=== PATIENT | male | born 1985 ===

== ENCOUNTER 2016-07-27 09:47 | Emergency (ER) | payer OTHER, SELFPAY ==
[2016-07-27 09:47] VITALS: BMI 31.6
[2016-07-27 10:01] VITALS: TEMP 98.4; O2SAT 99
--- NOTE | 2016-07-27 11:00 | ED PDOC ---
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 No chest pain, no neck pain. No abdominal pain. No PMD NIHSS Stroke Scale - Date/Time Evaluation Performed Date Performed: 07/27/16 Time Performed: 09:58 - How Severe is the Stroke Level of Consciousness: 0=Alert LOC to Questions: 0=Both comments correct LOC to commands: 0=Obeys both correctly Best Gaze: 0=Normal Visual: 0=No visual loss Facial: 0=Normal Motor Arm - Left: 0=No drift Motor Arm - Right: 0=No drift Motor Leg - Left: 0=No drift Motor Leg - Right: 0=No drift Limb Ataxia: 0=Absent Sensory: 0=Normal Best Language: 0=No aphasia Dysarthia: 0=Normal articulation Extinction & Inattention (Neglect): 0=Normal, no object Score: 0 Severity Of Stroke: 0 = No Stroke rTPA Inclusion/Exclusion - Refusal of Treatment Patient Refused Treatment: No - Inclusion Criteria for Altepase Patient is 18 years or Older: Yes The Clinical Diagnosis of Ischemic Stroke That is Causing a Potentially Disabling Neurological Deficit: No Time of Onset is Well Established to be Less Than 270 Minute Before Treatment Would Begin: No Risk/Benefit Discussed With Patient/Family Member Present: No - Exclusion Criteria for Altepase Uncontrolled Hypertension at Time of Treatment (Systolic BP above 185 or Diastolic BP above 110 mmHg): No Active Internal Bleeding: No Known Bleeding Diathesis Including but Not Limited to: Platelets Below 100,000/ mm,PTT Above 40 sec After Heparin Use, Current Use of Oral Anitcoagulant With INR Greater Than 1.7 or PT Greater Than 15 secs: No Evidence of an Intracranial Hemorrhage: No Evidence of Major Acute Infarct With Signs Greater Than 1/3 MCA Territory: No - Warning to TPA With Conditions Following Conditions Weighed Against Anticipated Benefit: Yes Condition: Care Team Unable to Determine Eligibilty (outside of window) Past Medical History Reviewed: Historical Data, Nursing Documentation, Vital Signs Vital Signs: Last Vital Signs Temp 98.4 F 04/19/17 09:58 Pulse 93 H 07/27/16 15:04 Resp 18 07/27/16 15:04 BP 146/78 07/27/16 15:04 Pulse Ox 99 07/27/16 15:04 - Medical History PMH: Bronchitis, Hypercholesterolemia - Surgical History Surgical History: Appendectomy Other surgeries: catheterization - Family History Family History: States: Unknown Family Hx - Social History Current smoker - smoking cessation education provided: No Alcohol: Occasional Drugs: Denies - Immunization History Hx Tetanus Toxoid Vaccination: No Hx Influenza Vaccination: No Hx Pneumococcal Vaccination: No - Home Medications Home Medications: Ambulatory Orders Medication Instructions Recorded Aspirin [[place] Aspirin] 81 mg PO 05/24/16 Naproxen [Naprosyn] 1 tab PO BID PRN #20 tab 05/24/16 Ibuprofen [Motrin] 600 mg PO Q8 #20 tab 06/15/16 - Allergies Allergies/Adverse Reactions: Allergies Allergy/AdvReac Type Severity Reaction Status Date / Time No Known Allergies Allergy Verified 05/24/16 13:40 Review of Systems ROS Statement: Except As Marked, All Systems Reviewed And Found Negative Cardiovascular: Negative for: Chest Pain Musculoskeletal: Negative for: Shoulder Pain, Arm Pain Neurological: Positive for: Numbness Physical Exam - Reviewed Nursing Documentation Reviewed: Yes Vital Signs Reviewed: Yes - Physical Exam Appears: Positive for: Well, Non-toxic, No Acute Distress Head Exam: Positive for: ATRAUMATIC, NORMAL INSPECTION, NORMOCEPHALIC Skin: Positive for: Warm, Dry Eye Exam: Positive for: EOMI, PERRL Cardiovascular/Chest: Positive for: Regular Rate, Rhythm Respiratory: Positive for: Normal Breath Sounds. Negative for: Rales, Rhonchi, Wheezing Gastrointestinal/Abdominal: Positive for: Soft. Negative for: Tenderness Extremity: Positive for: Normal ROM. Negative for: Tenderness, Deformity, Swelling Neurologic/Psych: Positive for: Alert, Oriented (x3), Other (See NIH Stroke Scale). Negative for: Motor/Sensory Deficits - Laboratory Results Result Diagrams: 07/27/16 11:19 07/27/16 11:19 - ECG ECG: Positive for: Interpreted By Me, Viewed By Me ECG Rhythm: Positive for: Sinus Rhythm Interpretation Of ECG: early repolarization O2 Sat by Pulse Oximetry: 99 (RA) Pulse Ox Interpretation: Normal Medical Decision Making Medical Decision Makin Impression: numbess pt without cardiac risk factors and ekg and labs normal rule out intracranial process, rule out CVA. Plan; -Ct head w/o -CXR -labs -reassess 1243 CXR Report reviewed: no focal consolidation, significant pleural effusion, definite pneumothorax identified. 1450 CT Head w/o IMPRESSION: No acute intracranial pathology identified. 1450 On reassessment patient states numbness has resolved. Will refer him to clinic and outpatient neurology for outpatient workup. stable for discharge. Disposition - Clinical Impression Clinical Impression: Arm paresthesia, left - Patient ED Disposition Is Patient to be Admitted: No Counseled Patient/Family Regarding: Studies Performed, Diagnosis, Need For Followup - Disposition Referrals: [facility] [Outside] [facility] [Outside] Radha Rodriguez MD [Staff Provider] - Disposition: Routine/Home Disposition Time: 12:00 Condition: GOOD Additional Instructions: follow up with your primary doctor/clinic as well as neurology in 1-2 days. return to the ED with any worsening or concerning symptoms. Instructions: Paresthesia (ED) Additional Comments - Additional Comments Additional Comments: Scribe Attestation: Documented by Martínez Pierce acting as a scribe for Garret Crouch MD. Provider Scribe Attestation: All medical record entries made by the Scribe were at my direction and personally dictated by me. I have reviewed the chart and agree that the record accurately reflects my personal performance of the history, physical exam, medical decision making, and the department course for this patient. I have also personally directed, reviewed, and agree with the discharge instructions and disposition.
[2016-07-27 11:29] LABS: BASO % 0.7 % (0.0-2.0); EOS # 0.1 K/uL (0.0-0.7); EOS % 0.9 % (0.0-4.0); HEMATOCRIT 44.1 % (35.0-51.0); LYMPH % 32.3 % (20.0-40.0); MEAN CELL VOLUME 84.5 fl (80.0-94.0); MEAN CORPUSCULAR HEMOGLOBIN 28.6 pg (27.0-31.0); MEAN CORPUSCULAR HGB CONC 33.8 g/dL (33.0-37.0); MEAN PLATELET VOLUME 6.9 fl (7.2-11.7); MONO # 0.5 K/uL (0.0-0.8); MONO % 7.4 % (0.0-10.0); NEUT # 3.6 K/uL (1.8-7.0); NEUT % 58.7 % (50.0-75.0); NRBC % 0.1 % (0.0-0.0); RED CELL DISTRIBUTION WIDTH 13.4 % (11.5-14.5); WHITE BLOOD COUNT 6.1 K/uL (4.8-10.8)
--- NOTE | 2016-07-27 11:29 | RAD ---
HISTORY: left arm pain COMPARISON: Chest x-ray performed 08/25/14 TECHNIQUE: Chest PA and lateral FINDINGS: LUNGS: No focal consolidation. Please note that chest x-ray has limited sensitivity for the detection of pulmonary masses. PLEURA: No significant pleural effusion identified. No definite pneumothorax . CARDIOVASCULAR: The cardiomediastinal silhouette appears within normal limits of size. OSSEOUS STRUCTURES: No acute osseous abnormality identified. VISUALIZED UPPER ABDOMEN: Unremarkable. OTHER FINDINGS: None. IMPRESSION: No focal consolidation, significant pleural effusion, or definite pneumothorax identified.
[2016-07-27 11:40] LABS: CHLORIDE 104 mmol/L (98-107); SODIUM 139 mmol/l (132-148)
[2016-07-27 11:41] LABS: POTASSIUM 4.3 MMOL/L (3.6-5.0)
[2016-07-27 11:43] LABS: ALB/GLOB RATIO 1.3 (1.0-2.1); ALKALINE PHOSPHATASE 49 U/L (38-126); AST/SGOT 34 U/L (17-59); BILIRUBIN,TOTAL 0.7 mg/dl (0.2-1.3); BLOOD UREA NITROGEN 11 mg/dl (9-20); CARBON DIOXIDE 26 mmol/L (22-30); GFR AFRICAN-AMERICAN > 60; TOTAL PROTEIN 7.6 G/DL (6.3-8.2)
[2016-07-27 11:44] LABS: ALT/SGPT 32 U/L (21-72); CALCIUM 9.1 mg/dL (8.4-10.2); GLUCOSE,RANDOM 91 mg/dL (75-110)
--- NOTE | 2016-07-27 13:15 | CT ---
PROCEDURE: CT HEAD WITHOUT CONTRAST. HISTORY: headache COMPARISON: Images from noncontrast head CT performed 07/31/11 TECHNIQUE: Axial computed tomography images were obtained through the head/brain without intravenous contrast. Radiation dose: Total exam DLP = 856.57 mGy-cm. This CT exam was performed using one or more of the following dose reduction techniques: Automated exposure control, adjustment of the mA and/or kV according to patient size, and/or use of iterative reconstruction technique. FINDINGS: HEMORRHAGE: No intracranial hemorrhage. BRAIN: No mass effect or edema. The jacobo-white matter differentiation appears intact. Please note that MRI with diffusion imaging is more sensitive in the detection of acute ischemic event. VENTRICLES: No hydrocephalus. CALVARIUM: Unremarkable. PARANASAL SINUSES: Unremarkable as visualized. No significant inflammatory changes. MASTOID AIR CELLS: Unremarkable as visualized. No inflammatory changes. OTHER FINDINGS: None. IMPRESSION: No acute intracranial pathology identified.
[2016-07-27 15:05] VITALS: BP 146/78; PULSE 93; RESP 18
== END 2016-07-27 15:05 | disposition home or self-care (01) ==
LOC: H.ER 09:47
DX: R20.9 Unspecified disturbances of skin sensation (principal); E78.00 Pure hypercholesterolemia, unspecified

== ENCOUNTER 2016-10-08 22:07 | Emergency (ER) | payer SELFPAY ==
[2016-10-08 22:07] VITALS: BMI 31.6
[2016-10-08 22:14] VITALS: BP 127/87; PULSE 100; RESP 16; TEMP 98.1; O2SAT 98
--- NOTE | 2016-10-08 22:38 | ED PDOC ---
Lower Extremity Pain/Injury Time Seen by Provider: 10/08/16 22:15 Chief Complaint (Nursing): Lower Extremity Problem/Injury Chief Complaint (Provider): Ankle pain History Per: Patient Additional Complaint(s): Right ankle pain and swelling after falling from 2 steps of stairs. Pt able to ambulate with limp. no history of previous breaks to affected extremity Past Medical History Reviewed: Nursing Documentation, Vital Signs Vital Signs: Last Vital Signs Temp 98.1 F 10/08/16 22:11 Pulse 100 H 10/08/16 22:11 Resp 16 10/08/16 22:11 BP 127/87 10/08/16 22:11 Pulse Ox 98 10/08/16 22:11 - Medical History PMH: Bronchitis, Hypercholesterolemia - Surgical History Surgical History: Appendectomy - Family History Family History: States: Unknown Family Hx - Social History Current smoker - smoking cessation education provided: No Alcohol: Social Drugs: Denies - Immunization History Hx Tetanus Toxoid Vaccination: No Hx Influenza Vaccination: No Hx Pneumococcal Vaccination: No - Home Medications Home Medications: Ambulatory Orders Medication Instructions Recorded Aspirin [[place] Aspirin] 81 mg PO 05/24/16 Naproxen [Naprosyn] 1 tab PO BID PRN #20 tab 05/24/16 Ibuprofen [Motrin] 600 mg PO Q8 #20 tab 06/15/16 Ibuprofen [Motrin] 600 mg PO Q6 #20 tab 10/08/16 - Allergies Allergies/Adverse Reactions: Allergies Allergy/AdvReac Type Severity Reaction Status Date / Time No Known Allergies Allergy Verified 05/24/16 13:40 Review of Systems ROS Statement: Except As Marked, All Systems Reviewed And Found Negative Musculoskeletal: Positive for: Other (ankle pain) Physical Exam - Reviewed Nursing Documentation Reviewed: Yes Vital Signs Reviewed: Yes - Physical Exam Appears: Positive for: Well, Non-toxic, No Acute Distress Head Exam: Positive for: ATRAUMATIC, NORMAL INSPECTION, NORMOCEPHALIC Skin: Positive for: Normal Color, Warm, DRY Eye Exam: Positive for: EOMI, Normal appearance, PERRL ENT: Positive for: Normal ENT Inspection Neck: Positive for: Normal, Painless ROM Cardiovascular/Chest: Positive for: Regular Rate, Rhythm Respiratory: Positive for: CNT, Normal Breath Sounds Gastrointestinal/Abdominal: Positive for: Normal Exam, Bowel Sounds, Soft Back: Positive for: Normal Inspection Extremity: Positive for: Normal ROM, Tenderness (medial malleolus). Negative for: Deformity, Swelling Neurologic/Psych: Positive for: Alert, Oriented - ECG O2 Sat by Pulse Oximetry: 98 Medical Decision Making Medical Decision Making: XR: NAD, as read by DOMINICK Motrin administered for pain pt educated on results and demonstrated full understanding RICE therapy advised Disposition - Clinical Impression Clinical Impression: Ankle pain, Ankle sprain and strain - Patient ED Disposition Is Patient to be Admitted: No - Disposition Referrals: [facility] [Outside] Disposition: Routine/Home Disposition Time: 23:19 Condition: STABLE Prescriptions: Ibuprofen [Motrin] 600 mg PO Q6 #20 tab Instructions: Ankle Sprain (ED), RICE Therapy (ED) Forms: [facility] ED School/Work Excuse Print Language: INDONESIAN - POA Present On Arrival: None
--- NOTE | 2016-10-09 09:21 | RAD ---
PROCEDURE: Right Ankle Radiographs. HISTORY: pain s/p twist injury COMPARISON: Comparison made with concurrent radiographs of the right foot. FINDINGS: BONES: No evidence of acute displaced fracture nor dislocation. The osseous structures appear intact. Talar dome intact. . . There are tiny bony density seen within the soft tissues subjacent to the inferior tip of the lateral malleolus. Findings may represent some old posttraumatic mineralization Note is made of a small bony protuberance arising from the medial margin of the at medial malleolus likely representing an incidental exostosis. JOINTS: Ankle mortise maintained. No significant osteoarthritis SOFT TISSUES: There appears to be minor lateral soft tissue swelling OTHER FINDINGS: None. IMPRESSION: No acute displaced fracture nor dislocation. Tiny bony densities within the soft tissues subjacent to the inferior tip of the lateral malleolus possibly represents edema some all posttraumatic mineralization. Minor lateral soft tissue swelling
--- NOTE | 2016-10-09 09:23 | RAD ---
PROCEDURE: Right Foot Radiographs. HISTORY: pain s/p twist injury COMPARISON: None. FINDINGS: BONES: No fracture. Tiny bony protuberances seen arising from the medial aspect of the medial malleolus which could represent an incidental exostosis JOINTS: Joint space preserved. No significant osteoarthritis. SOFT TISSUES: Normal. OTHER FINDINGS: None. IMPRESSION: No evidence acute displaced fracture nor dislocation
== END 2016-10-08 23:18 | disposition home or self-care (01) ==
LOC: H.ER 22:07
DX: M25.571 Pain in right ankle and joints of right foot (principal); S93.401A Sprain of unspecified ligament of right ankle, initial encounter; S96.911A Strain of unspecified muscle and tendon at ankle and foot level, right foot, initial encounter; W10.9XXA Fall (on) (from) unspecified stairs and steps, initial encounter

== ENCOUNTER 2016-10-11 05:42 | Emergency (ER) | payer SELFPAY ==
[2016-10-11 05:42] VITALS: BMI 31.6
[2016-10-11 06:01] VITALS: BP 154/71; PULSE 77; TEMP 98; O2SAT 98
[2016-10-11 06:14] VITALS: RESP 16
[2016-10-11] MEDS ORDERED: Albuterol-Ipratrop 3 mg / 0.5 (3 ml) UD INH STA ×2 (06:14)
--- NOTE | 2016-10-11 06:43 | ED PDOC ---
HPI: SOB/CHF/COPD Time Seen by Provider: 10/11/16 06:02 Chief Complaint (Nursing): Shortness Of Breath Chief Complaint (Provider): Shortness of Breath History Per: Patient History/Exam Limitations: no limitations Onset/Duration Of Symptoms: Days (x3) Current Symptoms Are (Timing): Still Present Associated Symptoms: denies: Chest Pain, Bloody Cough, Productive Cough Additional Complaint(s): 31 year old male presents to ED with complaints of SOB x3 days and has a past medical history of bronchitis. (-) chest pain, sore throat, cough, and all other symptoms. Denies recent travel, recent surgeries, or recent immobilizations. PCP: TBD - Risk Factors PE Risk Factors: Neg: Extremity Immobilization/Fx, Recent Major Surgery Past Medical History Reviewed: Historical Data, Nursing Documentation, Vital Signs Vital Signs: Last Vital Signs Temp 98.0 F 10/11/16 05:53 Pulse 77 10/11/16 05:53 Resp 16 10/11/16 06:13 BP 154/71 H 10/11/16 05:53 Pulse Ox 98 10/11/16 06:46 - Medical History PMH: Bronchitis, Hypercholesterolemia Denies: No Chronic Diseases - Surgical History Surgical History: Appendectomy - Family History Family History: States: Unknown Family Hx - Social History Current smoker - smoking cessation education provided: No Alcohol: Occasional Drugs: Denies - Immunization History Hx Tetanus Toxoid Vaccination: No Hx Influenza Vaccination: No Hx Pneumococcal Vaccination: No - Home Medications Home Medications: Ambulatory Orders Medication Instructions Recorded Aspirin [[place] Aspirin] 81 mg PO 05/24/16 Naproxen [Naprosyn] 1 tab PO BID PRN #20 tab 05/24/16 Ibuprofen [Motrin] 600 mg PO Q8 #20 tab 06/15/16 Ibuprofen [Motrin] 600 mg PO Q6 #20 tab 10/08/16 Albuterol HFA [Ventolin HFA 90 2 puff IH [id number] #1 puff 10/11/16 mcg/actuation (8 g)] Prednisone [Deltasone] 40 mg PO DAILY 3 Days 10/11/16 - Allergies Allergies/Adverse Reactions: Allergies Allergy/AdvReac Type Severity Reaction Status Date / Time No Known Allergies Allergy Verified 05/24/16 13:40 Curb-65 Severity Score - CURB-65 Severity Score Confusion: No Respiratory Rate greater than/equal to 30: No Systolic BP <90 or Diastolic BP less than/equal 60mmHg: No Age >64: No Curb-65 Score: 0 Percentage 30-day mortality: 0.6% Wells Criteria for PE - Wells Criteria for Pulmonary Embolism Clinical Signs and Symptoms of DVT: No P.E is #1 Diagnosis, or Equally Likely: No Heart Rate >100: No Immobilization at least 3 days;Surgery previous 4 weeks: No Previous, objectively diagnosed PE or DVT: No Hemoptysis: No Malignancy w/treatment within 6 months, or palliative: No Total Score: 0 Review of Systems ROS Statement: Except As Marked, All Systems Reviewed And Found Negative ENT: Negative for: Throat Pain Cardiovascular: Negative for: Chest Pain Respiratory: Positive for: Shortness of Breath. Negative for: Cough Physical Exam - Reviewed Nursing Documentation Reviewed: Yes Vital Signs Reviewed: Yes - Physical Exam Appears: Positive for: Non-toxic, No Acute Distress Head Exam: Positive for: ATRAUMATIC Skin: Positive for: Normal Color, Warm, Dry Eye Exam: Positive for: Normal appearance ENT: Positive for: Normal ENT Inspection Neck: Positive for: Normal Cardiovascular/Chest: Positive for: Regular Rate, Rhythm. Negative for: Murmur Respiratory: Positive for: Normal Breath Sounds. Negative for: Respiratory Distress Gastrointestinal/Abdominal: Positive for: Soft. Negative for: Tenderness Extremity: Positive for: Normal ROM. Negative for: Deformity Neurologic/Psych: Positive for: Alert, Oriented. Negative for: Motor/Sensory Deficits - ECG O2 Sat by Pulse Oximetry: 98 (RA) Pulse Ox Interpretation: Normal Medical Decision Making Medical Decision Makin Initial impression: bronchospasm Initial plan: * CXR * Duonebs 3mL INH x2 * Prednisone 40mg PO * Peak flow pre/post Tx 650 Breathing is much improved. Return precautions given. Told to f/u w/ PMD. Scribe Attestation: Documented by Cat Davies acting as a scribe for Weston Dillard MD. Scribe Attestation: All medical record entries made by the Scribe were at my direction and personally dictated by me. I have reviewed the chart and agree that the record accurately reflects my personal performance of the history, physical exam, medical decision making, and the department course for this patient. I have also personally directed, reviewed, and agree with the discharge instructions and disposition. Disposition - Clinical Impression Clinical Impression: Bronchospasm - Disposition Referrals: [facility] [Outside] Disposition: Transfer of Care Disposition Time: 07:00 Condition: STABLE Prescriptions: Albuterol HFA [Ventolin HFA 90 mcg/actuation (8 g)] 2 puff IH [id number] #1 puff Prednisone [Deltasone] 40 mg PO DAILY 3 Days Instructions: Bronchospasm (ED) Patient Signed Over To: Garret Crouch Handoff Comments: Pending re-evaluation
--- NOTE | 2016-10-11 09:15 | RAD ---
HISTORY: sob COMPARISON: 07/27/2016 TECHNIQUE: Chest PA and lateral FINDINGS: LUNGS: No focal airspace opacity. PLEURA: No significant pleural effusion identified. No pneumothorax apparent. CARDIOVASCULAR: Normal. OSSEOUS STRUCTURES: No significant abnormalities. VISUALIZED UPPER ABDOMEN: Normal. OTHER FINDINGS: None. IMPRESSION: No focal airspace opacity. No significant interval change. Please note that chest radiographs have low sensitivity for small pulmonary nodules. If indicated, chest CT should be obtained.
--- NOTE | 2016-10-13 07:05 | CARD ---
APPROVED REPORT EKG Measurement Heart [id number] <Conclusion> Normal sinus rhythm ST elevation, consider early repolarization
== END 2016-10-11 06:58 | disposition home or self-care (01) ==
LOC: H.ER 05:42
DX: J98.01 Acute bronchospasm (principal); E78.00 Pure hypercholesterolemia, unspecified

== ENCOUNTER 2017-03-12 13:20 | Emergency (ER) | payer OTHER ==
[2017-03-12 13:21] VITALS: BMI 31.6
[2017-03-12 13:29] VITALS: RESP 16; TEMP 98; O2SAT 99
--- NOTE | 2017-03-12 13:34 | ED PDOC ---
HPI: General Adult Time Seen by Provider: 03/12/17 13:33 Chief Complaint (Nursing): Palpitations Chief Complaint (Provider): palpitations History Per: Patient Additional Complaint(s): 31-year-old male presents to emergency department with intermittent palpitations that started 3 days ago. Patient denies any chest pain but states from time to time he feels that his heart is racing. Patient states that 8 years ago he had a cardiac cath due to palpitations and he was told that it was normal. He denies any shortness of breath or dyspnea on exertion. He denies any drug use but states that yesterday he did drink 2 beers. He states that he drinks in general on occasion. No recent travel. Past Medical History Reviewed: Historical Data, Nursing Documentation, Vital Signs Vital Signs: Last Vital Signs Temp 98 F 03/12/17 13:28 Pulse 84 03/12/17 13:28 Resp 16 03/12/17 13:28 BP 127/74 03/12/17 13:28 Pulse Ox 99 03/12/17 15:02 - Medical History PMH: Gastritis, Hypercholesterolemia - Surgical History Surgical History: Appendectomy Other surgeries: cardiac cath - Family History Family History: States: No Known Family Hx - Living Arrangements Living Arrangements: With Family - Social History Current smoker - smoking cessation education provided: No Alcohol: Social Drugs: Denies - Home Medications Home Medications: Ambulatory Orders Medication Instructions Recorded Aspirin [[place] Aspirin] 81 mg PO 05/24/16 Naproxen [Naprosyn] 1 tab PO BID PRN #20 tab 05/24/16 Ibuprofen [Motrin] 600 mg PO Q8 #20 tab 06/15/16 Ibuprofen [Motrin] 600 mg PO Q6 #20 tab 10/08/16 Albuterol HFA [Ventolin HFA 90 2 puff IH [id number] #1 puff 10/11/16 mcg/actuation (8 g)] Prednisone [Deltasone] 40 mg PO DAILY 3 Days 10/11/16 - Allergies Allergies/Adverse Reactions: Allergies Allergy/AdvReac Type Severity Reaction Status Date / Time No Known Allergies Allergy Verified 03/12/17 13:24 Review of Systems ROS Statement: Except As Marked, All Systems Reviewed And Found Negative Constitutional: Negative for: Fever, Weakness Cardiovascular: Positive for: Palpitations. Negative for: Chest Pain, Orthopnea , Edema, Light Headedness Respiratory: Negative for: Cough, Shortness of Breath, Hemoptysis, SOB with Exertion, Pleuritic Pain, Sputum, Wheezing Gastrointestinal: Negative for: Nausea, Vomiting Neurological: Negative for: Headache, Dizziness Physical Exam - Reviewed Nursing Documentation Reviewed: Yes Vital Signs Reviewed: Yes - Physical Exam Appears: Positive for: Well, Non-toxic, No Acute Distress Skin: Negative for: Rash Eye Exam: Positive for: Normal appearance Cardiovascular/Chest: Positive for: Regular Rate, Rhythm Respiratory: Positive for: Normal Breath Sounds. Negative for: Wheezing, Respiratory Distress Extremity: Negative for: Pedal Edema Neurologic/Psych: Positive for: Alert, Oriented - Laboratory Results Result Diagrams: 03/12/17 14:00 03/12/17 14:00 - ECG Interpretation Of ECG: NSR 75 bpm, no acute finding, reviewed by PA and ED attending O2 Sat by Pulse Oximetry: 99 Pulse Ox Interpretation: Normal - Other Rad bedside chest X-Ray: Interpreted by Me, Viewed By Me X-Ray Interpretation: no acute finding Medical Decision Making Medical Decision Makin31 year old with palpitations Plan: EKG CXR Trop CBC CMP IVF Patient is aware of all diagnostic testing results, all questions answered. Heart rate has stayed within normal range throughout ED stay. Patient was referred to clinic for follow up. Disposition - Clinical Impression Clinical Impression: Palpitations - Patient ED Disposition Is Patient to be Admitted: No Counseled Patient/Family Regarding: Studies Performed, Diagnosis, Need For Followup - Disposition Referrals: [facility] [Outside] Disposition: Routine/Home Disposition Time: 15:25 Condition: STABLE Additional Instructions: Call clinic tomorrow to arrange for follow-up visit. Return to emergency department any time if acutely worse. Instructions: Palpitations (ED) Forms: [employer] (Kazakh) Results - Lab Results Lab Results: 03/12/17 03/12/17 03/12/17 14:10 14:00 14:00 WBC 6.4 RBC 5.19 Hgb 14.9 Hct 43.8 MCV 84.3 MCH 28.6 MCHC 33.9 RDW 13.5 Plt Count 197 MPV 7.4 Neut % (Auto) 56.0 Lymph % (Auto) 35.1 Emery % (Auto) 7.0 Eos % (Auto) 0.8 Baso % (Auto) 1.1 Neut # 3.6 Lymph # 2.2 Emery # 0.4 Eos # 0.0 Baso # 0.1 Sodium 136 Potassium 4.0 Chloride 99 Carbon Dioxide 28 Anion Gap 13 BUN 14 Creatinine 0.8 Est GFR ( Amer) > 60 Est GFR (Non-Af Amer) > 60 Random Glucose 89 Calcium 9.0 Total Bilirubin 0.5 AST 30 ALT 26 Alkaline Phosphatase 57 Troponin I < 0.0120 Total Protein 7.3 Albumin 4.2 Globulin 3.1 Albumin/Globulin Ratio 1.4 Urine Opiates Screen Negative Urine Methadone Screen Negative Ur Barbiturates Screen Negative Ur Phencyclidine Scrn Negative Ur Amphetamines Screen Negative U Benzodiazepines Scrn Negative U Oth Cocaine Metabols Negative U Cannabinoids Screen Negative
[2017-03-12] MEDS ORDERED: Sodium Chloride 0.9% 1,000 ML IV STA (13:40)
[2017-03-12 14:11] LABS: BASO # 0.1 K/uL (0.0-0.2); BASO % 1.1 % (0.0-2.0); EOS % 0.8 % (0.0-4.0); HEMATOCRIT 43.8 % (35.0-51.0); LYMPH # 2.2 K/uL (1.0-4.3); LYMPH % 35.1 % (20.0-40.0); MEAN CELL VOLUME 84.3 fl (80.0-94.0); MEAN CORPUSCULAR HEMOGLOBIN 28.6 pg (27.0-31.0); MEAN CORPUSCULAR HGB CONC 33.9 g/dL (33.0-37.0); MEAN PLATELET VOLUME 7.4 fl (7.2-11.7); MONO # 0.4 K/uL (0.0-0.8); NEUT # 3.6 K/uL (1.8-7.0); NRBC % 0.1 % (0.0-0.0); RED CELL DISTRIBUTION WIDTH 13.5 % (11.5-14.5); WHITE BLOOD COUNT 6.4 K/uL (4.8-10.8)
[2017-03-12 14:32] LABS: ALB/GLOB RATIO 1.4 (1.0-2.1); ALKALINE PHOSPHATASE 57 U/L (38-126); ALT/SGPT 26 U/L (21-72); AST/SGOT 30 U/L (17-59); BILIRUBIN,TOTAL 0.5 mg/dl (0.2-1.3); BLOOD UREA NITROGEN 14 mg/dl (9-20); CARBON DIOXIDE 28 mmol/L (22-30); CHLORIDE 99 mmol/L (98-107); GFR AFRICAN-AMERICAN > 60; GLUCOSE,RANDOM 89 mg/dL (75-110); SODIUM 136 mmol/l (132-148); TOTAL PROTEIN 7.3 G/DL (6.3-8.2)
--- NOTE | 2017-03-12 15:07 | RAD ---
HISTORY: palpitations COMPARISON: Comparison chest dated 10/11/2016 FINDINGS: LUNGS: No active pulmonary disease. PLEURA: No significant pleural effusion identified, no pneumothorax apparent. CARDIOVASCULAR: Normal. OSSEOUS STRUCTURES: No significant abnormalities. VISUALIZED UPPER ABDOMEN: Normal. OTHER FINDINGS: None. IMPRESSION: No active disease.
[2017-03-12 15:28] VITALS: BP 109/64; PULSE 74
--- NOTE | 2017-03-13 13:50 | CARD ---
APPROVED REPORT EKG Measurement Heart [id number] <Conclusion> Normal sinus rhythm with sinus arrhythmia Early repolarization Normal ECG
== END 2017-03-12 15:32 | disposition home or self-care (01) ==
LOC: H.ER 13:20
DX: R00.2 Palpitations (principal); E78.00 Pure hypercholesterolemia, unspecified; Z79.82 Long term (current) use of aspirin
CPT/HCPCS: 71010; 80053; 80324; 80345; 80346; 80349; 80353; 80358; 80361; 83992; 84484; 85025; 93005; 96360; 99285; J7040

== ENCOUNTER 2018-01-08 21:12 | Emergency (ER) | payer OTHER ==
[2018-01-08 21:12] VITALS: BMI 31.6
[2018-01-08 22:22] VITALS: BP 134/84; PULSE 78; RESP 18; TEMP 97.9; O2SAT 99
[2018-01-08] MEDS ORDERED: Naproxen 500 MG TAB PO ONE ×2 (22:58→23:35)
--- NOTE | 2018-01-08 23:01 | ED PDOC ---
HPI: General Adult Chief Complaint (Provider): knee pain, dizziness History Per: Patient History/Exam Limitations: no limitations Onset/Duration Of Symptoms: Days (1 week), Waxing/Waning Additional Complaint(s): 32 y/o male presents for evaluation of knee pain x 1 week. States occasionally his neck and back will hurt as well. Patient also reports feeling dizzy at times, with a "room spinning" sensation; but none at present. Denies headache, nausea/vomiting, vision changes, extremity numbness/weakness, chest pain, shortness of breath, palpitations, leg swelling. <Malena Corcoran - Last Filed: 01/09/18 02:12> <Weston Dillard - Last Filed: 01/10/18 03:51> Time Seen by Provider: 01/08/18 22:27 Chief Complaint (Nursing): Back Pain Past Medical History Reviewed: Historical Data, Nursing Documentation, Vital Signs Vital Signs: Last Vital Signs Temp 97.9 F 01/08/18 22:20 Pulse 78 01/08/18 22:20 Resp 18 01/08/18 22:20 BP 134/84 01/08/18 22:20 Pulse Ox 99 01/08/18 22:20 - Medical History PMH: Bronchitis, Gastritis, Hypercholesterolemia - Surgical History Surgical History: Appendectomy - Family History Family History: States: Unknown Family Hx - Immunization History Hx Tetanus Toxoid Vaccination: No Hx Influenza Vaccination: No Hx Pneumococcal Vaccination: No <Malena Corcoran - Last Filed: 01/09/18 02:12> Vital Signs: Last Vital Signs Temp 97.9 F 01/08/18 22:20 Pulse 78 01/08/18 22:20 Resp 18 01/08/18 22:20 BP 134/84 01/08/18 22:20 Pulse Ox 99 01/09/18 02:14 <Weston Dillard - Last Filed: 01/10/18 03:51> - Home Medications Home Medications: Ambulatory Orders Medication Instructions Recorded Aspirin [[place] Aspirin] 81 mg PO 05/24/16 RX: Naproxen [Naprosyn] 1 tab PO BID PRN #20 tab 05/24/16 Ibuprofen [Motrin] 600 mg PO Q8 #20 tab 06/15/16 Ibuprofen [Motrin] 600 mg PO Q6 #20 tab 10/08/16 Albuterol HFA [Ventolin HFA 90 2 puff IH [id number] #1 puff 10/11/16 mcg/actuation (8 g)] RX: Prednisone [Deltasone] 40 mg PO DAILY 3 Days 10/11/16 RX: Meclizine [Meclizine*] 25 mg PO Q8 PRN #21 tab 01/09/18 RX: Naproxen [Naprosyn] 500 mg PO Q12 PRN #20 tablet 01/09/18 - Allergies Allergies/Adverse Reactions: Allergies Allergy/AdvReac Type Severity Reaction Status Date / Time No Known Allergies Allergy Verified 01/08/18 22:19 Review of Systems ROS Statement: Except As Marked, All Systems Reviewed And Found Negative Musculoskeletal: Positive for: Leg Pain Neurological: Positive for: Dizziness <Malena Corcoran - Last Filed: 01/09/18 02:12> Physical Exam - Reviewed Nursing Documentation Reviewed: Yes Vital Signs Reviewed: Yes - Physical Exam Appears: Positive for: Well, Non-toxic, No Acute Distress Head Exam: Positive for: ATRAUMATIC, NORMAL INSPECTION, NORMOCEPHALIC Skin: Positive for: Normal Color Eye Exam: Positive for: Normal appearance ENT: Positive for: Normal ENT Inspection Cardiovascular/Chest: Positive for: Regular Rate, Rhythm Respiratory: Positive for: Normal Breath Sounds Gastrointestinal/Abdominal: Positive for: Normal Exam Back: Positive for: Normal Inspection Extremity: Positive for: Normal ROM Neurologic/Psych: Positive for: Alert, Oriented (x3) <Malena Corcoran C - Last Filed: 01/09/18 02:12> - Laboratory Results Result Diagrams: 01/08/18 23:26 01/08/18 23:26 - ECG ECG: Positive for: Viewed By Me (reviewed by ED attending) ECG Rhythm: Positive for: Sinus Rhythm O2 Sat by Pulse Oximetry: 99 - Other Rad bilateral knee xray X-Ray: Viewed By Me X-Ray Interpretation: no acute findings - Progress ED Course And Treament: labs, ekg, kne xray, toradol On re-eval, patient states she is feeling better. Patient educated on findings, discharge with rx Naproxen, meclizine Advised RICE Follow up PMD 2-3 days Return precautions given <Malena Corcoran - Last Filed: 01/09/18 02:12> - Laboratory Results Result Diagrams: 01/08/18 23:26 01/08/18 23:26 <Weston Dillard - Last Filed: 01/10/18 03:51> Disposition - Patient ED Disposition Is Patient to be Admitted: No Counseled Patient/Family Regarding: Studies Performed, Diagnosis, Need For Followup, Rx Given - Disposition Disposition: Routine/Home Disposition Time: 02:11 <Malena Corcoran - Last Filed: 01/09/18 02:12> <Weston Dillard - Last Filed: 01/10/18 03:51> - Clinical Impression Clinical Impression: Bilateral leg pain, Dizziness - Disposition Referrals: [facility] [Outside] Condition: IMPROVED Prescriptions: RX: Meclizine [Meclizine*] 25 mg PO Q8 PRN #21 tab PRN Reason: Dizziness RX: Naproxen [Naprosyn] 500 mg PO Q12 PRN #20 tablet PRN Reason: Pain, Moderate (4-7) Instructions: Vertigo (a Type of Dizziness), Knee Pain - PA / [employer] / Resident Statement MD/DO has reviewed & agrees with the documentation as recorded. <Weston Dillard - Last Filed: 01/10/18 03:51>
[2018-01-08 23:34] LABS: BASO # 0.1 K/uL (0.0-0.2); BASO % 1.1 % (0.0-2.0); EOS # 0.1 K/uL (0.0-0.7); HEMOGLOBIN 14.9 g/dL (12.0-18.0); LYMPH # 3.2 K/uL (1.0-4.3); MEAN CELL VOLUME 85.6 fl (80.0-94.0); MEAN CORPUSCULAR HEMOGLOBIN 28.9 pg (27.0-31.0); MEAN CORPUSCULAR HGB CONC 33.8 g/dL (33.0-37.0); MEAN PLATELET VOLUME 7.1 fl (7.2-11.7); MONO # 0.7 K/uL (0.0-0.8); MONO % 7.9 % (0.0-10.0); RBC 5.16 Mil/uL (4.40-5.90); RED CELL DISTRIBUTION WIDTH 14.1 % (11.5-14.5); WHITE BLOOD COUNT 9.1 K/uL (4.8-10.8)
[2018-01-08 23:46] LABS: ALB/GLOB RATIO 1.2 (1.0-2.1); ALBUMIN 3.9 g/dL (3.5-5.0); ALT/SGPT 28 U/L (21-72); AST/SGOT 27 U/L (17-59); BLOOD UREA NITROGEN 18 mg/dl (9-20); GFR NON-AFRICAN AMERICAN > 60
[2018-01-09 00:43] LABS: SQUAMOUS EPITHIAL < 1 /hpf (0-5); URINE BACTERIA RARE (<OCC); URINE BILIRUBIN NEGATIVE (NEGATIVE); URINE BLOOD NEGATIVE (NEGATIVE); URINE CLARITY CLEAR (Clear); URINE COLOR YELLOW (YELLOW); URINE GLUCOSE (UA) NEG (Normal); URINE LEUKOCYTE ESTERASE NEG Leu/uL (Negative); URINE PROTEIN NEGATIVE (NEGATIVE)
[2018-01-09 01:29] LABS: BARBITURATES, UR NEGATIVE (NEGATIVE); BENZODIAZEPINES, UR NEGATIVE (NEGATIVE); OPIATES, UR NEGATIVE (NEGATIVE); PHENCYCLIDINE, UR NEGATIVE (NEGATIVE)
--- NOTE | 2018-01-09 09:28 | CARD ---
APPROVED REPORT Date of service: 01/09/2018 EKG Measurement Heart [id number] 176P0 [id number] <Conclusion> Normal sinus rhythm Early repolarization Normal ECG
--- NOTE | 2018-01-09 12:04 | RAD ---
Date of service: 01/08/2018 PROCEDURE: Bilateral Knee Radiographs. HISTORY: pain COMPARISON: None. FINDINGS: BONES: Right Knee: Normal. No fracture. Left Knee: Normal. No fracture. JOINTS: Right Knee: Normal. No osteoarthritis. Left knee: Normal. No osteoarthritis. SOFT TISSUES: Right Knee: Normal. Left Knee: Normal. JOINT EFFUSION: Right Knee: None. Left Knee: None. OTHER FINDINGS: None. IMPRESSION: Normal radiographs of the knees.
== END 2018-01-09 02:17 | disposition home or self-care (01) ==
LOC: H.ER 21:12
DX: M79.606 Pain in leg, unspecified (principal); R42 Dizziness and giddiness; E78.00 Pure hypercholesterolemia, unspecified

== ENCOUNTER 2018-03-06 18:10 | Emergency (ER) | payer SELFPAY ==
[2018-03-06 18:11] VITALS: BMI 31.6
[2018-03-06 19:01] VITALS: RESP 18
--- NOTE | 2018-03-06 20:23 | ED PDOC ---
Syncope/Near Syncope/Dizziness Time Seen by Provider: 03/06/18 19:53 Chief Complaint (Nursing): Weakness/Neurological Deficit Chief Complaint (Provider): Weakness/Neurological Deficit History Per: Patient History/Exam Limitations: no limitations Onset/Duration Of Symptoms: Intermittent Episodes (x1 day) Current Symptoms Are (Timing): Still Present Additional Complaint(s): 32 year old male with pmHx of HTN, presents to ED with a complaint of generalized weakness associated with palpitations that comes and goes for 1 day. He denies any chest pain, headache, dizziness, or syncope. PCP: none provided Past Medical History Reviewed: Historical Data, Nursing Documentation, Vital Signs Vital Signs: Last Vital Signs Temp 98.2 F 03/06/18 18:58 Pulse 83 03/06/18 18:58 Resp 18 03/06/18 18:58 BP 144/77 03/06/18 18:58 Pulse Ox 100 03/06/18 18:58 - Medical History PMH: Bronchitis, Gastritis, HTN, Hypercholesterolemia - Surgical History Surgical History: Appendectomy - Family History Family History: States: Unknown Family Hx - Social History Current smoker - smoking cessation education provided: No Alcohol: None Drugs: Denies - Immunization History Hx Tetanus Toxoid Vaccination: No Hx Influenza Vaccination: No Hx Pneumococcal Vaccination: No - Home Medications Home Medications: Ambulatory Orders Medication Instructions Recorded Aspirin [[place] Aspirin] 81 mg PO 05/24/16 RX: Naproxen [Naprosyn] 1 tab PO BID PRN #20 tab 05/24/16 Ibuprofen [Motrin] 600 mg PO Q8 #20 tab 06/15/16 Ibuprofen [Motrin] 600 mg PO Q6 #20 tab 10/08/16 Albuterol HFA [Ventolin HFA 90 2 puff IH [id number] #1 puff 10/11/16 mcg/actuation (8 g)] RX: Prednisone [Deltasone] 40 mg PO DAILY 3 Days 10/11/16 RX: Meclizine [Meclizine*] 25 mg PO Q8 PRN #21 tab 01/09/18 RX: Naproxen [Naprosyn] 500 mg PO Q12 PRN #20 tablet 01/09/18 - Allergies Allergies/Adverse Reactions: Allergies Allergy/AdvReac Type Severity Reaction Status Date / Time No Known Allergies Allergy Verified 03/06/18 18:58 Review of Systems ROS Statement: Except As Marked, All Systems Reviewed And Found Negative Constitutional: Positive for: Weakness (generalized) Cardiovascular: Positive for: Palpitations. Negative for: Chest Pain Neurological: Negative for: Headache, Dizziness (or syncope) Physical Exam - Reviewed Nursing Documentation Reviewed: Yes Vital Signs Reviewed: Yes - Physical Exam Appears: Positive for: Non-toxic, No Acute Distress Head Exam: Positive for: ATRAUMATIC, NORMAL INSPECTION, NORMOCEPHALIC Skin: Positive for: Normal Color Eye Exam: Positive for: Normal appearance, EOMI, PERRL ENT: Positive for: Normal ENT Inspection Neck: Positive for: Normal Cardiovascular/Chest: Positive for: Regular Rate, Rhythm Respiratory: Positive for: Normal Breath Sounds. Negative for: Respiratory Distress Gastrointestinal/Abdominal: Positive for: Normal Exam, Soft Extremity: Positive for: Normal ROM (upper/lower) Neurologic/Psych: Positive for: Alert, naval designer II-XII (grossly intact), Oriented, Gait (steady, unassisted). Negative for: Motor/Sensory Deficits, Aphasia - Laboratory Results Result Diagrams: 03/06/18 20:30 03/06/18 20:30 - ECG ECG: Positive for: Interpreted By Me, Viewed By Me ECG Rhythm: Positive for: Normal QRS, Normal ST Segment, Sinus Rhythm Rate: 75 O2 Sat by Pulse Oximetry: 100 (RA) Pulse Ox Interpretation: Normal - Progress Re-evaluation Time: 21:30 Condition: Re-examined, Improved Medical Decision Making Medical Decision Making: Initial Impression: Palpitations; Generalized weaknes Differential Diagnosis: Anxiety; Cardiac arrhythmia; Anemia Initial Plan: * EKG * Labs Scribe Attestation: Documented by Shilpi Johnson, acting as a scribe for Laura Moran MD. Provider Scribe Attestation: All medical record entries made by the Nimo were at my direction and personally dictated by me. I have reviewed the chart and agree that the record accurately reflects my personal performance of the history, physical exam, medical decision making, and the department course for this patient. I have also personally directed, reviewed, and agree with the discharge instructions and disposition. Disposition - Clinical Impression Clinical Impression: Palpitations - Patient ED Disposition Is Patient to be Admitted: No Doctor Will See Patient In The: Office Counseled Patient/Family Regarding: Studies Performed, Diagnosis, Need For Followup - Disposition Referrals: [facility] [Outside] Disposition: Routine/Home Disposition Time: 21:37 Condition: GOOD Additional Instructions: CLAUS CADE, thank you for letting us take care of you today. Your provider was Laura Moran MD and you were treated for WEAKNESS. The emergency medical care you received today was directed at your acute symptoms. If you were prescribed any medication, please fill it and take as directed. It may take several days for your symptoms to resolve. Return to the Emergency Department if your symptoms worsen, do not improve, or if you have any other problems. Please contact your doctor or call one of the physicians/clinics you have been referred to that are listed on the Patient Visit Information form that is inc luded in your discharge packet. Bring any paperwork you were given at discharge with you along with any medications you are taking to your follow up visit. Our treatment cannot replace ongoing medical care by a primary care provider outside of the emergency department. Thank you for allowing the Critical access hospital team to be part of your care today. If you had an X-Ray or CT scan: A Radiologist will review the ED reading if any change in treatment is needed we will contact you. If you had a blood, urine, or wound culture: It will take several days for the results, if any change in treatment is needed we will contact you. If you had an STI test: It will take 48 hours for the results. Please call after 1 week if you have not heard back. Instructions: Palpitations Print Language: IRISH
[2018-03-06 20:54] LABS: BASO # 0.1 K/uL (0.0-0.2); BASO % 1.1 % (0.0-2.0); EOS # 0.1 K/uL (0.0-0.7); EOS % 0.5 % (0.0-4.0); HEMOGLOBIN 14.8 g/dL (12.0-18.0); LYMPH # 2.6 K/uL (1.0-4.3); LYMPH % 26.7 % (20.0-40.0); MEAN CELL VOLUME 84.5 fl (80.0-94.0); MEAN CORPUSCULAR HEMOGLOBIN 27.7 pg (27.0-31.0); MEAN CORPUSCULAR HGB CONC 32.8 g/dL (33.0-37.0); MEAN PLATELET VOLUME 7.3 fl (7.2-11.7); MONO # 0.7 K/uL (0.0-0.8); MONO % 7.2 % (0.0-10.0); NEUT # 6.3 K/uL (1.8-7.0); NEUT % 64.5 % (50.0-75.0); NRBC % 0.1 % (0.0-0.0); RBC 5.35 Mil/uL (4.40-5.90); RED CELL DISTRIBUTION WIDTH 14.3 % (11.5-14.5); WHITE BLOOD COUNT 9.8 K/uL (4.8-10.8)
[2018-03-06 20:58] LABS: BLOOD UREA NITROGEN 10 mg/dl (9-20); CALCIUM 9.3 mg/dL (8.4-10.2); GFR NON-AFRICAN AMERICAN > 60
[2018-03-06 21:10] LABS: BARBITURATES, UR NEGATIVE (NEGATIVE); BENZODIAZEPINES, UR NEGATIVE (NEGATIVE); OPIATES, UR NEGATIVE (NEGATIVE); PHENCYCLIDINE, UR NEGATIVE (NEGATIVE)
[2018-03-06 21:51] VITALS: BP 130/85; TEMP 97.8
--- NOTE | 2018-03-07 10:53 | CARD ---
APPROVED REPORT Date of service: 03/06/2018 EKG Measurement Heart [id number] <Conclusion> Normal sinus rhythm Early repolarization Normal ECG
[2018-03-07 15:31] VITALS: PULSE 75; O2SAT 100
== END 2018-03-06 21:59 | disposition home or self-care (01) ==
LOC: H.ER 18:10
DX: R00.2 Palpitations (principal); E78.00 Pure hypercholesterolemia, unspecified; I10 Essential (primary) hypertension

== ENCOUNTER 2018-06-28 18:55 | Emergency (ER) | payer SELFPAY ==
[2018-06-28 18:56] VITALS: BMI 31.6
[2018-06-28 19:39] VITALS: O2SAT 98
--- NOTE | 2018-06-28 21:18 | ED PDOC ---
Lower Extremity Pain/Injury Time Seen by Provider: 06/28/18 19:52 Chief Complaint (Nursing): Lower Extremity Problem/Injury Chief Complaint (Provider): Lower Extremity Problem/Injury History Per: Patient History/Exam Limitations: no limitations Onset/Duration Of Symptoms: Days (x5) Current Symptoms Are (Timing): Still Present Additional Complaint(s): 33 year old male presents to the ED with left leg pain onset 5 days. Patient describes pain as a tight sensation in his leg, from the back of his thighs to calves. He reports mild similar pain to right leg as well. He denies any associated swelling, exercise, back pain, injuries or trauma. 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 PMD: Clinic Past Medical History Reviewed: Historical Data, Nursing Documentation, Vital Signs Vital Signs: Last Vital Signs Temp 98.6 F 06/28/18 19:36 Pulse 86 06/28/18 19:36 Resp 16 06/28/18 19:36 BP 148/75 06/28/18 19:36 Pulse Ox 98 06/28/18 19:36 - Medical History PMH: Bronchitis, Gastritis, HTN, Hypercholesterolemia - Surgical History Surgical History: Appendectomy - Family History Family History: States: Unknown Family Hx - Immunization History Hx Tetanus Toxoid Vaccination: No Hx Influenza Vaccination: No Hx Pneumococcal Vaccination: No - Home Medications Home Medications: Ambulatory Orders Medication Instructions Recorded Aspirin [[place] Aspirin] 81 mg PO 05/24/16 Naproxen [Naprosyn] 1 tab PO BID PRN #20 tab 05/24/16 Ibuprofen [Motrin] 600 mg PO Q8 #20 tab 06/15/16 Ibuprofen [Motrin] 600 mg PO Q6 #20 tab 10/08/16 Albuterol HFA [Ventolin HFA 90 2 puff IH [id number] #1 puff 10/11/16 mcg/actuation (8 g)] Prednisone [Deltasone] 40 mg PO DAILY 3 Days 10/11/16 Meclizine [Meclizine*] 25 mg PO Q8 PRN #21 tab 01/09/18 Naproxen [Naprosyn] 500 mg PO Q12 PRN #20 tablet 01/09/18 - Allergies Allergies/Adverse Reactions: Allergies Allergy/AdvReac Type Severity Reaction Status Date / Time No Known Allergies Allergy Verified 03/06/18 18:58 Review of Systems ROS Statement: Except As Marked, All Systems Reviewed And Found Negative Musculoskeletal: Positive for: Leg Pain (bilateral) Physical Exam - Reviewed Nursing Documentation Reviewed: Yes Vital Signs Reviewed: Yes - Physical Exam Appears: Positive for: No Acute Distress Skin: Positive for: Normal Color, Warm, Dry Eye Exam: Positive for: Normal appearance Back: Negative for: L CVA Tenderness, R CVA Tenderness, Vertebral Tenderness Extremity: Positive for: Other ( No swelling or tenderness to bilateral lower extremities noted, otherwise. Hips: full ROM. Knees: full ROM. No calf swelling). Negative for: Calf Tenderness Neurological/Psych: Positive for: Awake, Alert, Oriented - ECG O2 Sat by Pulse Oximetry: 98 (RA) Pulse Ox Interpretation: Normal Medical Decision Making Medical Decision Making: Time: 2056 Plan: --Motrin --Dopplers Pt. well appearing, ambulating around ED. Pt. endorsed to RAS Pena at 11:15pm, pending doppler results. Scribe Attestation: Documented by Becka Ugalde acting as a scribe for Jennifer Haynes PA-C. Provider Scribe Attestation: All medical record entries made by the Scribe were at my direction and personally dictated by me. I have reviewed the chart and agree that the record accurately reflects my personal performance of the history, physical exam, medical decision making, and the department course for this patient. I have also personally directed, reviewed, and agree with the discharge instructions and disposition. Disposition - Clinical Impression Clinical Impression: Leg pain - Patient ED Disposition Is Patient to be Admitted: Transfer of Care (RAS Pena) Counseled Patient/Family Regarding: Studies Performed - Disposition Disposition: Transfer of Care Disposition Time: 23:17 Condition: STABLE Forms: [employer] (Jamaican)
--- NOTE | 2018-06-29 00:07 | ED PDOC ---
- ECG O2 Sat by Pulse Oximetry: 98 (RA) Medical Decision Making Medical Decision Makin - Patient care assumed from Emily ADAME; the patient was evaluated by myself and is stable. He is awaiting the results from his doppler study only. 23:22 Lower Extremity US FINDINGS: DEEP VEINS: The common femoral, superficial femoral, and popliteal veins are echolucent and compressible. There is normal color Doppler flow throughout. The visualized calf veins appear patent. SUPERFICIAL VEINS: The visualized greater saphenous vein is patent. SOFT TISSUES: No popliteal fossa cyst or other abnormalities. IMPRESSION: No deep venous thrombosis evident on bilateral lower extremity examination. Disposition Counseled Patient/Family Regarding: Diagnosis, Need For Followup - Clinical Impression Clinical Impression: Leg pain - POA Present On Arrival: None - Disposition Disposition: Routine/Home Disposition Time: 00:36 Condition: STABLE Instructions: Stretching Exercises for Your Lower Body, Lower Extremity Exercises Seated, Making Everyday Tasks Easier With Pain Forms: [facility] (South African)
[2018-06-29 00:22] VITALS: BP 122/78; PULSE 78; RESP 18; TEMP 98
--- NOTE | 2018-06-29 09:37 | US ---
Date of service: 06/28/2018 PROCEDURE: Bilateral lower extremity venous duplex Doppler. HISTORY: bilateral leg pain COMPARISON: None available. TECHNIQUE: Bilateral common femoral, superficial femoral, popliteal and posterior tibial veins were evaluated. Flow was assessed with color Doppler, compressibility, assessment of phasic flow and augmentation response. FINDINGS: COMMON FEMORAL VEIN: Right CFV: Unremarkable. Left CFV: Unremarkable. SUPERFICIAL FEMORAL VEIN: Right SFV: Unremarkable. Left SFV: Unremarkable. POPLITEAL VEIN: Right Popliteal: Unremarkable. Left Popliteal: Unremarkable. POSTERIOR TIBIAL VEIN: Right PTV: Unremarkable. Left PTV: Unremarkable. OTHER FINDINGS: None. IMPRESSION: No evidence of deep venous thrombosis. Concordant findings (preliminary report) provided by [facility].
== END 2018-06-29 00:48 | disposition home or self-care (01) ==
LOC: H.ER 18:55
DX: M79.605 Pain in left leg (principal); E78.00 Pure hypercholesterolemia, unspecified; I10 Essential (primary) hypertension